=== PATIENT | male | born 1990 | race Caucasian/White ===

== ENCOUNTER 2021-08-03 09:29 | Emergency (ER) | payer OTHER, SELFPAY ==
[2021-08-03 09:40] VITALS: BP 141/88; PULSE 67; RESP 14; TEMP 36.7; O2SAT 98; BMI 35.2
--- NOTE | 2021-08-03 09:45 | DI.RAD.S_ITS ---
PROCEDURE: XR KNEE LT 3V INDICATIONS: knee pain after fall TECHNIQUE: 3 views of the knee were acquired. COMPARISON: None. FINDINGS: Bones: No fractures or dislocations. No suspicious bony lesions. Soft tissues: No joint effusion. No suspicious soft tissue calcifications. IMPRESSION: Normal knee plain films. If it would be helpful for clinical management decision making, please consider a dedicated, scheduled knee MRI for further evaluation (assuming that there is no contraindication). Dictated by: Damon Smith M.D. on 08/03/2021 at 9:30 Approved by: Damon Smith M.D. on 08/03/2021 at 9:30
--- NOTE | 2021-08-03 11:43 | ED_ITS ---
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 Increasing pain over the last 48 hours. He is able to bear weight. He has noticed increasing swelling in comes in for further evaluation. Related Data Allergies Allergy/AdvReac Type Severity Reaction Status Date / Time No Known Drug Allergies Allergy Verified 08/03/21 09:45 Review of Systems Review of Systems Narrative: Pertinent positive and negative findings as per HPI Remainder of review of systems is otherwise unremarkable for Constitutional: Fevers, chills, weakness ENT: No sore throat, neck pain, ear pain CV: Chest pain, palpitations, Respiratory: Cough, wheeze, dyspnea : Dysuria, hematuria, Patient History Social History Smoking Status: Unknown if ever smoked Smoking Status: Unknown if ever smoked alcohol intake frequency: holidays/special occasions only Substance Use Type: does not use Exam Narrative Exam Narrative: General: Alert appropriate in no acute distress Respiratory: Able to speak in full sentences, no obvious respiratory distress Skin: No obvious rashes, warm and dry Neurologic: Grossly intact no obvious asymmetries or abnormalities Psych: appropriate insight and affect, cooperative Extremity: Mild effusion left knee. He is tender over the patellar insertion. Knee joint itself is stable with no abnormalities appreciated to medial or lat eral collateral ligaments, ACL or PCL. He has range of motion limited to flexion to in 45? secondary to the small effusion. There is no erythema or excessive warmth to the knee. He is able to bear weight. Initial Vital Signs Initial Vital Signs: Vital Signs Temperature 98.0 F 08/03/21 09:40 Pulse Rate 67 08/03/21 09:40 Respiratory Rate 14 08/03/21 09:40 Blood Pressure 141/88 H 08/03/21 09:40 Pulse Oximetry 98 08/03/21 09:40 Procedures Orthopedic Splinting/Casting Left knee immobilizer: Time of procedure: 12:03 Side: left Lower Extremity Injury Location: knee Lower Extremity Immobilizer: knee immobilizer Post splinting neuro exam: intact Post splinting vascular exam: intact Placed by: Provider Course Orders Ordered: ED Orders 08/03/21 09:45 XR knee LT 3V Stat Vital Signs Vital signs: Vital Signs - 8 hr 08/03/21 09:40 Temperature 98.0 F Pulse Rate 67 Respiratory Rate 14 Blood Pressure 141/88 H Pulse Oximetry 98 MDM - Extremity Injury (Lower) Imaging Data X-ray knee: Radiologist's Impression: FINDINGS: Bones: No fractures or dislocations. No suspicious bony lesions. Soft tissues: No joint effusion. No suspicious soft tissue calcifications. IMPRESSION: Normal knee plain films. If it would be helpful for clinical management decision making, please consider a dedicated, scheduled knee MRI for further evaluation (assuming that there is no contraindication). Dictated by: Damon Smith M.D. 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 Increasing pain over the last 48 hours. He is able to bear weight. He has noticed increasing swelling in comes in for further evaluation. Mild effusion with negative x-rays. Have recommended nonweightbearing work activities for the next week to allow the joint heal in the effusion to resolve. Questions are answered and he is safe for home discharge Discharge Plan Departure Patient Disposition: Home Clinical Impression: Knee Injury Instructions: DI for Knee Sprain Activity Restrictions/Additional Instructions: Thank you for coming in today There are no broken bones in your knee and ligaments from cells feel stable. You do have a small effusion, fluid collection inside the joint. Given the effusion in the pain, I have placed a knee immobilizer that I will recommend that you wear for the next week to help with stability. It is okay for you to walk on the knee however I do not want to walking in any type of unstable environment or anything that requires significant balance until the knee has completely healed. Using 400 mg of ibuprofen (2 [id number] pills) and 1 Tylenol every 6 hours can be very helpful in controlling pain. Stand Alone Forms: Work Release Note
== END 2021-08-03 12:17 | disposition home or self-care (01) ==
PROVIDERS: Emergency Provider Emergency Medicine
DX: S89.92XA Unspecified injury of left lower leg, initial encounter (principal); W19.XXXA Unspecified fall, initial encounter; Y99.0 Civilian activity done for income or pay
CPT/HCPCS: 73562; 99283

== ENCOUNTER → 2023-08-21 12:33 | Outpatient (CLI) | payer OTHER, SELFPAY ==
--- NOTE | 2023-08-21 12:39 | DI.RAD.S_ITS ---
PROCEDURE: XR RIBS LT MIN 3V W CXR1V INDICATIONS: fall onto left ribs, eval for fracture, pneumo TECHNIQUE: 3 views of the left ribs were acquired, along with a single view chest. COMPARISON: None. FINDINGS: Surgical changes and devices: None. Bones and chest wall: The left 6th rib has a minimally displaced fracture of the tip of the rib. No fractures or dislocations. No suspicious bony lesions. Overlying soft tissues appear unremarkable. Lungs and pleura: No pleural effusions or pneumothorax. Lungs appear clear. Mediastinum: Mediastinal contours appear normal. Heart size is normal. IMPRESSION: 1. Minimally displaced fracture of the tip of the left 6th rib. 2. No acute cardiopulmonary abnormality. Dictated by: Mele Solis M.D. on 08/21/2023 at 13:08 Approved by: Mele Solis M.D. on 08/21/2023 at 13:10
== END ==
PROVIDERS: Referring Provider Student in an Organized Health Care Education/Training Program; Visit Provider Student in an Organized Health Care Education/Training Program
DX: S22.32XA Fracture of one rib, left side, initial encounter for closed fracture (principal); R07.89 Other chest pain
CPT/HCPCS: 71101